=== PATIENT | male | born 1960 | race American Indian/Alaskan Native ===

== ENCOUNTER 2018-01-15 22:20 | Emergency (ER) | payer BC, MEDICARE ==
[2018-01-15 23:00] VITALS: RESP 18; TEMP 98
--- NOTE | 2018-01-15 23:05 | ED PDOC ---
Arrival/HPI - General Chief Complaint: Alcohol Ingestion Time Seen by Provider: 01/15/18 22:22 Historian: Patient, Police - History of Present Illness Narrative History of Present Illness (Text): 01/15/18 23:02 A 58 year old male, with no known past medical history, is brought into the emergency department by EMS and [facility] after being found driving while intoxicated. The patient admits to drinking alcohol this evening. He repeatedly states that he "does not know what is going on". The patient denies fevers, chills, headache, dizziness, chest pain, shortness of breath, dyspnea on exertion, cough, abdominal pain, nausea, vomiting, diarrhea, back pain, neck pain, urinary/bowel changes, or any other somatic complaint. Time/Duration: Prior to Arrival Symptom Onset: Sudden Symptom Course: Unchanged Activities at Onset: Rest, Light Context: Home Past Medical History - Provider Review Nursing Documentation Reviewed: Yes - Psychiatric Hx Substance Use: No (unknown) - Anesthesia Hx Anesthesia: No (known) Family/Social History - Physician Review Nursing Documentation Reviewed: Yes Family/Social History: No Known Family HX Smoking Status: Unknown If Ever Smoked Hx Alcohol Use: Yes Hx Substance Use: No (unknown) Allergies/Home Meds Allergies/Adverse Reactions: Allergies Unobtainable Allergy (Verified 01/15/18 22:36) Review of Systems - Physician Review All systems were reviewed & negative as marked: Yes - Review of Systems Constitutional: absent: Fevers, Night Sweats Respiratory: absent: SOB, Cough Cardiovascular: absent: Chest Pain, PIERRE Musculoskeletal: absent: Back Pain, Neck Pain Neurological: absent: Headache, Dizziness Psychiatric: Other (Intoxicated. ) Physical Exam Vital Signs Reviewed: Yes Vital Signs Temp Pulse Resp BP Pulse Ox 01/16/18 04:00 85 18 138/72 100 01/16/18 02:00 98 F 88 18 148/78 99 01/16/18 00:21 98 F 86 18 118/73 99 01/15/18 22:21 98 F 60 18 122/73 95 Temperature: Afebrile Blood Pressure: Normal Pulse: Regular Respiratory Rate: Normal Appearance: Positive for: Well-Appearing, Non-Toxic, Comfortable Pain Distress: None Mental Status: Positive for: Alert and Oriented X 3 - Systems Exam Head: Present: Atraumatic, Normocephalic Pupils: Present: PERRL Extroacular Muscles: Present: EOMI Conjunctiva: Present: Normal Mouth: Present: Moist Mucous Membranes Neck: Present: Normal Range of Motion Respiratory/Chest: Present: Clear to Auscultation, Good Air Exchange. No: Respiratory Distress, Accessory Muscle Use Cardiovascular: Present: Regular Rate and Rhythm, Normal S1, S2. No: Murmurs Abdomen: No: Tenderness, Distention, Peritoneal Signs Back: Present: Normal Inspection Upper Extremity: Present: Normal Inspection. No: Cyanosis, Edema Lower Extremity: Present: Normal Inspection. No: Edema Neurological: Present: GCS=15, CN II-XII Intact, Speech Normal Skin: Present: Warm, Dry, Normal Color. No: Rashes Psychiatric: Present: Alert, Oriented x 3, Normal Insight, Normal Concentration Medical Decision Making ED Course and Treatment: 01/15/18 23:05 Impression: A 58 year old male is brought into the emergency department via EMS and [facility] for driving while intoxicated. Plan: -- Reassess and disposition Progress Notes: 01/16/18 05:19: Patent is currently sleeping. In no acute distress. 01/16/18 05:48 registration cannot change name in computer. pt name ignacio teague, [birth year] awake alert ambulatory asking for dc - Scribe Statement The provider has reviewed the documentation as recorded by the Scribe Sade Neumann Provider Scribe Attestation: All medical record entries made by the Scribe were at my direction and personally dictated by me. I have reviewed the chart and agree that the record accurately reflects my personal performance of the history, physical exam, medical decision making, and the department course for this patient. I have also personally directed, reviewed, and agree with the discharge instructions and disposition. Disposition/Present on Arrival - Present on Arrival Any Indicators Present on Arrival: No History of DVT/PE: No History of Uncontrolled Diabetes: No Urinary Catheter: No (unknown) History of Decub. Ulcer: No (unknown) History Surgical Site Infection Following: None - Disposition Have Diagnosis and Disposition been Completed?: Yes Diagnosis: Alcohol abuse Disposition: HOME/ ROUTINE Disposition Time: 07:00 Patient Problems: Current Active Problems Problem Status Onset Alcohol abuse Acute Condition: STABLE Discharge Instructions (ExitCare): Alcohol Abuse and Alcoholism (DC) Additional Instructions: return to er with worsening sympoms or concerns Referrals: Alcoholics Anonymous [Outside] - Follow up with primary [facility] [Outside] - [place] up with primary [facility] [place] [facility] [place] - Follow up with primary PCP,NO [Primary Care Provider] - Follow up with primary Forms: [employer] (Bulgarian)
[2018-01-16 04:36] VITALS: O2SAT 100
[2018-01-16 05:55] VITALS: BP 135/78; PULSE 80
== END 2018-01-16 05:55 | disposition home or self-care (01) ==
LOC: ED 22:20
DX: F10.10 Alcohol abuse, uncomplicated (principal)